=== PATIENT | female | born 1960 | race Caucasian/White ===

== ENCOUNTER 2017-07-04 22:12 | Emergency (ER) | payer MEDICARE, OTHER, MEDICAID ==
[2017-07-04] MEDS: ACETAMINOPHEN 325 MG TAB PO (23:03)
== END 2017-07-04 23:11 | disposition home or self-care (01) ==
LOC: E/R 23:11
DX: T74.11XA Adult physical abuse, confirmed, initial encounter (principal); M79.1 Myalgia; I10 Essential (primary) hypertension; J44.9 Chronic obstructive pulmonary disease, unspecified; E03.9 Hypothyroidism, unspecified; Z59.0 Homelessness; Z79.82 Long term (current) use of aspirin; Z87.891 Personal history of nicotine dependence
CPT/HCPCS: 99282